=== PATIENT | female | born 1950 | race Caucasian/White ===

== ENCOUNTER 2017-12-14 15:24 | Inpatient (IN) | payer MEDICARE, BC, MEDICAID ==
[2017-12-14] MEDS: ALBUTEROL 0.5% (NEB) 2.5 MG/0.5 ML AMP INH (16:36)
[2017-12-14 17:03] LABS: ADD MAN DIFF? NO
[2017-12-14 17:05] LABS: WHITE BLOOD COUNT 14.6 10^3/ul (4.8-10.8)
[2017-12-14 17:05] LABS: BASOPHILS % 0.2 % (0.0-2.0); EOSINOPHILS # 0.1 10^3/ul (0.0-0.5); EOSINOPHILS % 0.4 % (0.0-7.0); HEMATOCRIT 30.1 % (37.0-47.0); HEMOGLOBIN 9.4 g/dl (12.0-16.0); LYMPHOCYTES # 0.8 10^3/ul (0.8-2.9); LYMPHOCYTES % 5.4 % (15.0-51.0); MEAN CORPUSCULAR HEMOGLOBIN 30.8 pg (29.0-33.0); MEAN CORPUSCULAR HGB CONC 31.2 g/dl (32.0-37.0); MEAN CORPUSCULAR VOLUME 98.7 fl (82.0-101.0); MEAN PLATELET VOLUME 10.1 fl (7.4-10.4); MONOCYTE # 0.6 10^3/ul (0.3-0.9); MONOCYTES % 3.9 % (0.0-11.0); NEUTROPHIL # 13.1 10^3/ul (1.6-7.5); NEUTROPHILS % 89.6 % (39.0-77.0); PLATELET COUNT 229 10^3/UL (140-415); RED BLOOD COUNT 3.05 10^6/ul (4.20-5.40); RED CELL DISTRIBUTION WIDTH 13.2 % (11.5-14.5)
[2017-12-14 17:27] LABS: ANION GAP 14 (8-16); BLOOD UREA NITROGEN 41 mg/dl (7-20); CALCIUM 8.4 mg/dl (8.4-10.2); CARBON DIOXIDE 36 mmol/L (21-31); CHLORIDE 99 mmol/L (97-110); CREATININE 1.82 mg/dl (0.44-1.00); GLUCOSE 120 mg/dl (70-220); POTASSIUM 3.8 mmol/L (3.5-5.1); SODIUM 145 mmol/L (135-144)
[2017-12-14 17:43] LABS: TROPONIN-I < 0.012 ng/ml (0.00-0.12)
[2017-12-14] MEDS: LEVOFLOXACIN 750MG/D5W (PMX) 150 ML IVPB (17:55)
[2017-12-14] MEDS: VANCOMYCIN 1 GM (PMX) 250 ML IVPB (20:33)
[2017-12-14] MEDS: BISACODYL 10 MG SUPP PR (23:30)
[2017-12-14] MEDS ORDERED: EPOETIN 10000 UNITS/1 ML INJ (ESRD) SC (23:30)
[2017-12-14] MEDS ORDERED: ACETAMINOPHEN 325 MG TAB PO (23:30)
[2017-12-14] MEDS ORDERED: METOCLOPRAMIDE 5 MG TAB GTB (23:30)
[2017-12-15] MEDS: LEVALBUTEROL (NEB) 0.63 MG/3 ML AMP HHN (02:22)
[2017-12-15] MEDS: ACETAMINOPHEN 325 MG TAB GTB (03:58)
[2017-12-15 05:09] LABS: ADD MAN DIFF? NO
[2017-12-15 05:14] LABS: WHITE BLOOD COUNT 8.8 10^3/ul (4.8-10.8)
[2017-12-15 05:14] LABS: BASOPHILS % 0.3 % (0.0-2.0); EOSINOPHILS # 0.1 10^3/ul (0.0-0.5); EOSINOPHILS % 1.4 % (0.0-7.0); HEMOGLOBIN 8.7 g/dl (12.0-16.0); LYMPHOCYTES # 1.2 10^3/ul (0.8-2.9); LYMPHOCYTES % 13.7 % (15.0-51.0); MEAN CORPUSCULAR HEMOGLOBIN 30.4 pg (29.0-33.0); MEAN CORPUSCULAR HGB CONC 31.1 g/dl (32.0-37.0); MEAN CORPUSCULAR VOLUME 97.9 fl (82.0-101.0); MEAN PLATELET VOLUME 10.6 fl (7.4-10.4); MONOCYTE # 0.7 10^3/ul (0.3-0.9); MONOCYTES % 8.3 % (0.0-11.0); NEUTROPHIL # 6.7 10^3/ul (1.6-7.5); PLATELET COUNT 206 10^3/UL (140-415); RED BLOOD COUNT 2.86 10^6/ul (4.20-5.40); RED CELL DISTRIBUTION WIDTH 13.6 % (11.5-14.5)
[2017-12-15 05:53] LABS: ANION GAP 15 (8-16); BLOOD UREA NITROGEN 38 mg/dl (7-20); CALCIUM 8.3 mg/dl (8.4-10.2); CARBON DIOXIDE 35 mmol/L (21-31); CHLORIDE 99 mmol/L (97-110); CREATININE 1.95 mg/dl (0.44-1.00); GLUCOSE 104 mg/dl (70-220); POTASSIUM 3.8 mmol/L (3.5-5.1); SODIUM 145 mmol/L (135-144)
[2017-12-15] MEDS: LEVOTHYROXINE 150 MCG TAB GTB (07:10)
[2017-12-15] MEDS: LANSOPRAZOLE 30 MG CAP GTB (07:10)
[2017-12-15] MEDS: LEVALBUTEROL (HFA) 15 GM INHALER INH ×3 (07:58→19:03)
[2017-12-15 08:40] LABS: AADO2 Arterial 43.6 mmHg (7.0-24.0); Arterial Base Excess 11.3 mmol/L (-3.0-3); Arterial Blood Gas Oxygen Sat 98.5 mmHG (95.0-98.0); Arterial COHb 0.3 % (0.0-3.0); Arterial Fraction of Oxyhgb 97.9 % (93.0-99.0); Arterial HCO3 36.5 mmol/L (22.0-26.0); Arterial MetHb 0.3 % (0.0-1.5); Arterial Total Hemglobin 10.6 g/dl (12.0-18.0); Arterial pCO2 51.8 mmhg (35-45); MODE VENT - AC; Site Right Radial
[2017-12-15] MEDS: GUAIFENESIN/DM 5ML CUP GTB ×4 (09:17→22:16)
[2017-12-15] MEDS: POLYETHYLENE GLYCOL 17 GM PACKET GTB (09:17)
[2017-12-15] MEDS: FERROUS SULFATE 60 MG/ML 5ML CUP GTB (09:17)
[2017-12-15] MEDS: SENNA TAB GTB ×2 (09:17→22:16)
[2017-12-15] MEDS: ENOXAPARIN 30 MG/0.3 ML SYG SC (09:18)
[2017-12-15] MEDS: FUROSEMIDE 40 MG INJ IV (09:18)
[2017-12-15] MEDS: CEFEPIME 1GM/50 ML (PMX) 50 ML IVPB ×2 (09:18→22:49)
[2017-12-15] MEDS: POTASSIUM CHLORIDE 20 MEQ POWDER FOR ORAL SOLN GTB ×2 (09:19→22:21)
[2017-12-15] MEDS: ARTIFICIAL TEARS 15 ML OPH BOTH EYES ×2 (10:58→22:20)
[2017-12-15] MEDS: LORAZEPAM 1 MG TAB GTB (13:39)
[2017-12-15] MEDS: EPOETIN ALFA (NESRD) 3,000 UNITS/ML VIAL SC (17:10)
[2017-12-15] MEDS: ATORVASTATIN 40 MG TAB GTB (22:15)
[2017-12-15] MEDS: BISACODYL 10 MG SUPP PR (23:30)
[2017-12-16] MEDS: LEVALBUTEROL (HFA) 15 GM INHALER INH ×4 (01:03→19:51)
[2017-12-16] MEDS: BISACODYL 10 MG SUPP PR ×2 (03:26→23:30)
[2017-12-16] MEDS: LEVOTHYROXINE 150 MCG TAB GTB (06:26)
[2017-12-16] MEDS: LANSOPRAZOLE 30 MG CAP GTB (06:26)
[2017-12-16] MEDS: FERROUS SULFATE 60 MG/ML 5ML CUP GTB (09:35)
[2017-12-16] MEDS: SENNA TAB GTB ×2 (09:35→21:37)
[2017-12-16] MEDS: ARTIFICIAL TEARS 15 ML OPH BOTH EYES ×2 (09:35→21:37)
[2017-12-16] MEDS: GUAIFENESIN/DM 5ML CUP GTB ×4 (09:35→21:38)
[2017-12-16] MEDS: POTASSIUM CHLORIDE 20 MEQ POWDER FOR ORAL SOLN GTB ×2 (09:35→21:38)
[2017-12-16] MEDS: FUROSEMIDE 40 MG INJ IV (09:36)
[2017-12-16] MEDS: ENOXAPARIN 30 MG/0.3 ML SYG SC (10:25)
[2017-12-16] MEDS: CEFEPIME 1GM/50 ML (PMX) 50 ML IVPB ×2 (10:31→21:38)
[2017-12-16] MEDS: POLYETHYLENE GLYCOL 17 GM PACKET GTB (10:31)
[2017-12-16] MEDS ORDERED: ONDANSETRON 4 MG INJ IV (11:30)
[2017-12-16] MEDS ORDERED: GLUCOSE GEL 15 GRAM TUBE BUCCAL (11:30)
[2017-12-16] MEDS ORDERED: DEXTROSE 50% 50 ML SYRINGE IV ×2 (11:30)
[2017-12-16] MEDS ORDERED: GLUCAGON 1 MG INJ IM (11:30)
[2017-12-16] MEDS ORDERED: GLUCOSE GEL 15 GRAM TUBE PO ×2 (11:30)
[2017-12-16] MEDS: INSULIN ASPART [NOVOLOG] 3 ML PEN SC ×3 (11:50→21:00)
[2017-12-16 18:01] LABS: ALANINE AMINOTRANSFERASE 28 IU/L (13-69); ALBUMIN 3.5 g/dl (3.3-4.9); ALBUMIN/GLOBULIN RATIO 1.02; ALKALINE PHOSPHATASE 95 IU/L (42-121); ANION GAP 13 (8-16); ASPARTATE AMINO TRANSFERASE 18 IU/L (15-46); BILIRUBIN,INDIRECT 0.2 mg/dl (0-1.1); BILIRUBIN,TOTAL 0.2 mg/dl (0.2-1.3); BLOOD UREA NITROGEN 39 mg/dl (7-20); CALCIUM 8.3 mg/dl (8.4-10.2); CARBON DIOXIDE 34 mmol/L (21-31); CHLORIDE 99 mmol/L (97-110); GLUCOSE 109 mg/dl (70-220); POTASSIUM 3.8 mmol/L (3.5-5.1); SODIUM 142 mmol/L (135-144); TOTAL PROTEIN 6.9 g/dl (6.1-8.1)
[2017-12-16] MEDS: ATORVASTATIN 40 MG TAB GTB (21:37)
[2017-12-17] MEDS: LEVALBUTEROL (HFA) 15 GM INHALER INH ×4 (01:06→19:47)
[2017-12-17 05:49] LABS: AADO2 Arterial 41.9 mmHg (7.0-24.0); Allen Test ACCEPTAB; Arterial Base Excess 6.2 mmol/L (-3.0-3); Arterial Blood Gas Oxygen Sat 98.1 mmHG (95.0-98.0); Arterial COHb 0.3 % (0.0-3.0); Arterial Fraction of Oxyhgb 97.7 % (93.0-99.0); Arterial MetHb 0.1 % (0.0-1.5); Arterial Total Hemglobin 10.3 g/dl (12.0-18.0); MODE VENT - AC; Site Left Radial
[2017-12-17] MEDS: LEVOTHYROXINE 150 MCG TAB GTB (06:27)
[2017-12-17] MEDS: LANSOPRAZOLE 30 MG CAP GTB (06:27)
[2017-12-17 07:08] LABS: ADD MAN DIFF? NO
[2017-12-17 07:11] LABS: BASOPHILS % 0.3 % (0.0-2.0); EOSINOPHILS # 0.1 10^3/ul (0.0-0.5); EOSINOPHILS % 2.2 % (0.0-7.0); HEMOGLOBIN 9.1 g/dl (12.0-16.0); LYMPHOCYTES # 1.2 10^3/ul (0.8-2.9); LYMPHOCYTES % 20.8 % (15.0-51.0); MEAN CORPUSCULAR HEMOGLOBIN 30.2 pg (29.0-33.0); MEAN CORPUSCULAR HGB CONC 31.4 g/dl (32.0-37.0); MEAN CORPUSCULAR VOLUME 96.3 fl (82.0-101.0); MONOCYTE # 0.6 10^3/ul (0.3-0.9); MONOCYTES % 9.7 % (0.0-11.0); NEUTROPHILS % 66.5 % (39.0-77.0); PLATELET COUNT 192 10^3/UL (140-415); RED BLOOD COUNT 3.01 10^6/ul (4.20-5.40); RED CELL DISTRIBUTION WIDTH 13.1 % (11.5-14.5)
[2017-12-17 07:28] LABS: HEMOGLOBIN A1C 5.6 % (0-5.9)
[2017-12-17 07:41] LABS: LACTIC ACID 0.7 mmol/L (0.5-2.0)
[2017-12-17] MEDS: INSULIN ASPART [NOVOLOG] 3 ML PEN SC ×4 (07:55→21:00)
[2017-12-17] MEDS: FERROUS SULFATE 60 MG/ML 5ML CUP GTB (08:47)
[2017-12-17] MEDS: GUAIFENESIN/DM 5ML CUP GTB ×4 (08:47→22:34)
[2017-12-17] MEDS: SENNA TAB GTB ×2 (08:47→22:40)
[2017-12-17] MEDS: POTASSIUM CHLORIDE 20 MEQ POWDER FOR ORAL SOLN GTB ×2 (08:47→22:34)
[2017-12-17] MEDS: CEFEPIME 1GM/50 ML (PMX) 50 ML IVPB ×2 (08:48→22:34)
[2017-12-17] MEDS: FUROSEMIDE 40 MG INJ IV (08:48)
[2017-12-17] MEDS: ARTIFICIAL TEARS 15 ML OPH BOTH EYES ×2 (08:48→22:35)
[2017-12-17] MEDS: POLYETHYLENE GLYCOL 17 GM PACKET GTB (08:48)
[2017-12-17 09:17] LABS: ANION GAP 13 (8-16); BLOOD UREA NITROGEN 38 mg/dl (7-20); CALCIUM 8.3 mg/dl (8.4-10.2); CARBON DIOXIDE 33 mmol/L (21-31); CHLORIDE 101 mmol/L (97-110); CREATININE 1.82 mg/dl (0.44-1.00); GLUCOSE 89 mg/dl (70-220); POTASSIUM 3.9 mmol/L (3.5-5.1); SODIUM 143 mmol/L (135-144)
[2017-12-17] MEDS: ENOXAPARIN 30 MG/0.3 ML SYG SC (09:28)
[2017-12-17] MEDS: ATORVASTATIN 40 MG TAB GTB (22:35)
[2017-12-17] MEDS: BISACODYL 10 MG SUPP PR (22:41)
[2017-12-18] MEDS: LEVALBUTEROL (HFA) 15 GM INHALER INH ×4 (01:23→19:26)
[2017-12-18 05:17] LABS: AADO2 Arterial 54.2 mmHg (7.0-24.0); Allen Test ACCEPTAB; Arterial Base Excess 3.6 mmol/L (-3.0-3); Arterial Blood Gas Oxygen Sat 97.7 mmHG (95.0-98.0); Arterial COHb 0.3 % (0.0-3.0); Arterial Fraction of Oxyhgb 97.3 % (93.0-99.0); Arterial HCO3 28.2 mmol/L (22.0-26.0); Arterial MetHb 0.1 % (0.0-1.5); Arterial pCO2 42.6 mmhg (35-45); MODE VENT - AC; Site Right Radial
[2017-12-18] MEDS: LEVOTHYROXINE 150 MCG TAB GTB (06:15)
[2017-12-18] MEDS: LANSOPRAZOLE 30 MG CAP GTB (06:15)
[2017-12-18 06:17] LABS: ADD MAN DIFF? NO
[2017-12-18 06:29] LABS: WHITE BLOOD COUNT 5.4 10^3/ul (4.8-10.8)
[2017-12-18 06:29] LABS: BASOPHILS % 0.7 % (0.0-2.0); EOSINOPHILS # 0.1 10^3/ul (0.0-0.5); HEMATOCRIT 28.5 % (37.0-47.0); LYMPHOCYTES # 1.3 10^3/ul (0.8-2.9); LYMPHOCYTES % 24.2 % (15.0-51.0); MEAN CORPUSCULAR HEMOGLOBIN 30.5 pg (29.0-33.0); MEAN CORPUSCULAR HGB CONC 31.6 g/dl (32.0-37.0); MEAN CORPUSCULAR VOLUME 96.6 fl (82.0-101.0); MEAN PLATELET VOLUME 11.1 fl (7.4-10.4); MONOCYTE # 0.6 10^3/ul (0.3-0.9); MONOCYTES % 10.3 % (0.0-11.0); NEUTROPHIL # 3.4 10^3/ul (1.6-7.5); NEUTROPHILS % 62.4 % (39.0-77.0); PLATELET COUNT 201 10^3/UL (140-415); RED BLOOD COUNT 2.95 10^6/ul (4.20-5.40); RED CELL DISTRIBUTION WIDTH 13.1 % (11.5-14.5)
[2017-12-18 06:57] LABS: ANION GAP 14 (8-16); BLOOD UREA NITROGEN 36 mg/dl (7-20); CARBON DIOXIDE 31 mmol/L (21-31); CHLORIDE 103 mmol/L (97-110); GLUCOSE 100 mg/dl (70-220); POTASSIUM 3.9 mmol/L (3.5-5.1); SODIUM 144 mmol/L (135-144)
[2017-12-18 07:46] LABS: CALCIUM 8.1 mg/dl (8.4-10.2)
[2017-12-18] MEDS: INSULIN ASPART [NOVOLOG] 3 ML PEN SC ×4 (07:55→21:00)
[2017-12-18] MEDS: ARTIFICIAL TEARS 15 ML OPH BOTH EYES ×2 (08:07→22:23)
[2017-12-18] MEDS: POTASSIUM CHLORIDE 20 MEQ POWDER FOR ORAL SOLN GTB ×2 (09:11→22:23)
[2017-12-18] MEDS: FERROUS SULFATE 60 MG/ML 5ML CUP GTB (09:11)
[2017-12-18] MEDS: POLYETHYLENE GLYCOL 17 GM PACKET GTB (09:11)
[2017-12-18] MEDS: GUAIFENESIN/DM 5ML CUP GTB ×4 (09:11→22:22)
[2017-12-18] MEDS: CEFEPIME 1GM/50 ML (PMX) 50 ML IVPB ×2 (09:12→22:24)
[2017-12-18] MEDS: SENNA TAB GTB ×2 (09:12→22:24)
[2017-12-18] MEDS: FUROSEMIDE 40 MG INJ IV (09:12)
[2017-12-18] MEDS: ENOXAPARIN 30 MG/0.3 ML SYG SC (09:14)
[2017-12-18] MEDS: EPOETIN ALFA (NESRD) 3,000 UNITS/ML VIAL SC (17:47)
[2017-12-18] MEDS: ATORVASTATIN 40 MG TAB GTB (22:24)
[2017-12-18] MEDS: FLUTICASONE 0.05% 16 GM NAS SPRAY NASAL (22:24)
[2017-12-19] MEDS: LEVALBUTEROL (HFA) 15 GM INHALER INH ×4 (02:43→19:20)
[2017-12-19] MEDS: BISACODYL 10 MG SUPP PR ×2 (03:52→23:30)
[2017-12-19] MEDS: LEVOTHYROXINE 150 MCG TAB GTB (06:18)
[2017-12-19] MEDS: LANSOPRAZOLE 30 MG CAP GTB (06:18)
[2017-12-19] MEDS: INSULIN ASPART [NOVOLOG] 3 ML PEN SC ×4 (07:55→20:34)
[2017-12-19 08:37] LABS: ADD MAN DIFF? NO
[2017-12-19 08:49] LABS: BASOPHILS % 0.3 % (0.0-2.0); EOSINOPHILS # 0.1 10^3/ul (0.0-0.5); EOSINOPHILS % 0.9 % (0.0-7.0); HEMATOCRIT 30.7 % (37.0-47.0); HEMOGLOBIN 9.6 g/dl (12.0-16.0); LYMPHOCYTES # 1.2 10^3/ul (0.8-2.9); LYMPHOCYTES % 18.1 % (15.0-51.0); MEAN CORPUSCULAR HGB CONC 31.3 g/dl (32.0-37.0); MEAN CORPUSCULAR VOLUME 95.9 fl (82.0-101.0); MEAN PLATELET VOLUME 10.7 fl (7.4-10.4); MONOCYTE # 0.5 10^3/ul (0.3-0.9); NEUTROPHIL # 4.7 10^3/ul (1.6-7.5); NEUTROPHILS % 72.4 % (39.0-77.0); PLATELET COUNT 212 10^3/UL (140-415); RED CELL DISTRIBUTION WIDTH 12.9 % (11.5-14.5)
[2017-12-19 08:49] LABS: WHITE BLOOD COUNT 6.5 10^3/ul (4.8-10.8)
[2017-12-19] MEDS: ARTIFICIAL TEARS 15 ML OPH BOTH EYES ×2 (09:02→20:28)
[2017-12-19] MEDS: SENNA TAB GTB ×2 (09:03→20:26)
[2017-12-19] MEDS: POLYETHYLENE GLYCOL 17 GM PACKET GTB (09:03)
[2017-12-19] MEDS: FERROUS SULFATE 60 MG/ML 5ML CUP GTB (09:03)
[2017-12-19] MEDS: GUAIFENESIN/DM 5ML CUP GTB ×4 (09:03→20:26)
[2017-12-19] MEDS: FLUTICASONE 0.05% 16 GM NAS SPRAY NASAL ×2 (09:03→20:28)
[2017-12-19] MEDS: POTASSIUM CHLORIDE 20 MEQ POWDER FOR ORAL SOLN GTB ×2 (09:03→20:27)
[2017-12-19] MEDS: FUROSEMIDE 40 MG INJ IV (09:04)
[2017-12-19] MEDS: CEFEPIME 1GM/50 ML (PMX) 50 ML IVPB ×2 (09:04→20:24)
[2017-12-19] MEDS: ENOXAPARIN 30 MG/0.3 ML SYG SC (09:05)
[2017-12-19 09:10] LABS: ANION GAP 12 (8-16); BLOOD UREA NITROGEN 33 mg/dl (7-20); CALCIUM 8.8 mg/dl (8.4-10.2); CARBON DIOXIDE 33 mmol/L (21-31); CHLORIDE 101 mmol/L (97-110); GLUCOSE 107 mg/dl (70-220); POTASSIUM 4.1 mmol/L (3.5-5.1); SODIUM 142 mmol/L (135-144)
[2017-12-19 09:25] LABS: FREE T3 2.01 pg/ml (2.77-5.27)
[2017-12-19] MEDS: ATORVASTATIN 40 MG TAB GTB (20:26)
[2017-12-20] MEDS: LEVALBUTEROL (HFA) 15 GM INHALER INH ×4 (01:29→19:53)
[2017-12-20] MEDS: LANSOPRAZOLE 30 MG CAP GTB (06:48)
[2017-12-20] MEDS: LEVOTHYROXINE 150 MCG TAB GTB (06:48)
[2017-12-20] MEDS: INSULIN ASPART [NOVOLOG] 3 ML PEN SC ×4 (07:55→20:27)
[2017-12-20] MEDS: ARTIFICIAL TEARS 15 ML OPH BOTH EYES ×2 (08:37→20:17)
[2017-12-20] MEDS: POLYETHYLENE GLYCOL 17 GM PACKET GTB (08:37)
[2017-12-20] MEDS: FERROUS SULFATE 60 MG/ML 5ML CUP GTB (08:37)
[2017-12-20] MEDS: GUAIFENESIN/DM 5ML CUP GTB ×4 (08:39→20:16)
[2017-12-20] MEDS: SENNA TAB GTB ×2 (08:39→20:16)
[2017-12-20] MEDS: FUROSEMIDE 40 MG INJ IV (08:40)
[2017-12-20] MEDS: CEFEPIME 1GM/50 ML (PMX) 50 ML IVPB ×2 (08:41→20:16)
[2017-12-20] MEDS: FLUTICASONE 0.05% 16 GM NAS SPRAY NASAL ×2 (08:41→20:17)
[2017-12-20] MEDS: ENOXAPARIN 30 MG/0.3 ML SYG SC (08:45)
[2017-12-20] MEDS: POTASSIUM CHLORIDE 20 MEQ POWDER FOR ORAL SOLN GTB ×2 (08:48→20:16)
[2017-12-20] MEDS: EPOETIN ALFA (NESRD) 3,000 UNITS/ML VIAL SC (17:25)
[2017-12-20] MEDS: ATORVASTATIN 40 MG TAB GTB (20:16)
== END 2017-12-20 21:45 | DRG 207 ==
LOC: TEL 18:22 → E/R 15:24
PROC: 5A1955Z Respiratory Ventilation, Greater than 96 Consecutive Hours (ICD-10-PCS; principal; 2017-12-15)
DX: J96.21 Acute and chronic respiratory failure with hypoxia (principal); I50.33 Acute on chronic diastolic (congestive) heart failure; J18.9 Pneumonia, unspecified organism; I13.0 Hypertensive heart and chronic kidney disease with heart failure and stage 1 through stage 4 chronic kidney disease, or unspecified chronic kidney disease; Z68.43 Body mass index [BMI] 50.0-59.9, adult; E66.2 Morbid (severe) obesity with alveolar hypoventilation; J96.22 Acute and chronic respiratory failure with hypercapnia; N18.9 Chronic kidney disease, unspecified; Z93.0 Tracheostomy status; D63.8 Anemia in other chronic diseases classified elsewhere; E03.9 Hypothyroidism, unspecified
CPT/HCPCS: 36600; 71045; 80048; 80053; 82803; 82962; 83036; 83605; 84443; 84481; 84484; 85025; 87040; 87400; 93005; 94002; 94003; 94640; 94664; 96372; 96374; 96375; 99285-25

== ENCOUNTER 2018-02-03 18:24 | Inpatient (IN) | payer MEDICARE, BC ==
[2018-02-03 20:14] LABS: ADD MAN DIFF? NO
[2018-02-03 20:19] LABS: WHITE BLOOD COUNT 9.2 10^3/ul (4.8-10.8)
[2018-02-03 20:19] LABS: ABNORMAL IP MESSAGE 1; BASOPHIL # 0.1 10^3/ul (0.0-0.1); BASOPHILS % 0.5 % (0.0-2.0); EOSINOPHILS # 0.1 10^3/ul (0.0-0.5); HEMATOCRIT 36.8 % (37.0-47.0); HEMOGLOBIN 10.6 g/dl (12.0-16.0); LYMPHOCYTES # 1.2 10^3/ul (0.8-2.9); LYMPHOCYTES % 13.4 % (15.0-51.0); MEAN CORPUSCULAR HGB CONC 28.8 g/dl (32.0-37.0); MEAN CORPUSCULAR VOLUME 100.5 fl (82.0-101.0); MEAN PLATELET VOLUME 10.5 fl (7.4-10.4); MONOCYTE # 0.7 10^3/ul (0.3-0.9); MONOCYTES % 7.9 % (0.0-11.0); NEUTROPHIL # 6.9 10^3/ul (1.6-7.5); NEUTROPHILS % 75.1 % (39.0-77.0); PLATELET COUNT 243 10^3/UL (140-415); RED BLOOD COUNT 3.66 10^6/ul (4.20-5.40); RED CELL DISTRIBUTION WIDTH 13.7 % (11.5-14.5)
[2018-02-03 20:25] LABS: POSITIVE DIFF @See below
[2018-02-03 20:39] LABS: ALANINE AMINOTRANSFERASE 20 IU/L (13-69); ALBUMIN/GLOBULIN RATIO 1.14; ALKALINE PHOSPHATASE 105 IU/L (42-121); ANION GAP 17 (8-16); ASPARTATE AMINO TRANSFERASE 29 IU/L (15-46); BILIRUBIN,INDIRECT 0.1 mg/dl (0-1.1); BILIRUBIN,TOTAL 0.1 mg/dl (0.2-1.3); BLOOD UREA NITROGEN 20 mg/dl (7-20); CALCIUM 8.3 mg/dl (8.4-10.2); CARBON DIOXIDE 35 mmol/L (21-31); CHLORIDE 100 mmol/L (97-110); CREATININE 1.65 mg/dl (0.44-1.00); GLUCOSE 119 mg/dl (70-220); LIPASE 58 U/L (23-300); POTASSIUM 4.4 mmol/L (3.5-5.1); SODIUM 148 mmol/L (135-144); TOTAL PROTEIN 7.5 g/dl (6.1-8.1)
[2018-02-03 20:40] LABS: LACTIC ACID 0.9 mmol/L (0.5-2.0)
[2018-02-03 20:51] LABS: TROPONIN-I 0.013 ng/ml (0.00-0.12)
[2018-02-03 20:56] LABS: T3 UPTAKE 32.3 % (23.5-40.5); T4 (THYROXINE) 6.5 ug/dl (5.5-11.0)
[2018-02-03 21:04] LABS: ACETAMINOPHEN < 10.0 ug/ml (10.0-30.0)
[2018-02-03 21:05] LABS: SALICYLATE < 1.0 mg/dl (5.0-30.0)
[2018-02-03 22:08] LABS: URINE BLOOD (Dip) POC Trace-lysed (NEGATIVE); URINE GLUCOSE (Dip) POC Negative (NEGATIVE); URINE KETONES (Dip) POC Negative (NEGATIVE); URINE LEUKOCYTE EST (Dip) POC Negative (NEGATIVE); URINE NITRITE (Dip) POC Positive (NEGATIVE); URINE TOTAL PROTEIN POC Trace (NEGATIVE)
[2018-02-03] MEDS: SOD CHLORIDE 0.9% 1,000 ML IV ×2 (22:15→23:55)
[2018-02-03] MEDS: ALBUTEROL 0.083% (NEB) 2.5 MG/3 ML AMP HHN (22:20)
[2018-02-03] MEDS: IPRATROPIUM (NEB) 0.5 MG/2.5 ML AMP HHN (22:27)
[2018-02-03 22:41] LABS: OPIATES Negative (NEGATIVE)
[2018-02-03 22:42] LABS: ADD UMIC YES; UR AMORPHOUS CRYSTAL MODERATE /HPF (NONE SEEN); UR ASCORBIC ACID NEGATIVE (NEGATIVE); UR BACTERIA FEW /HPF (NONE SEEN); UR BILIRUBIN (Dip) NEGATIVE (NEGATIVE); UR BLOOD (Dip) 1+ mg/dL (NEGATIVE); UR CLARITY SLIGHTLY CLOUDY (CLEAR); UR COLOR YELLOW (YELLOW); UR GLUCOSE (Dip) NEGATIVE (NEGATIVE); UR KETONES (Dip) NEGATIVE (NEGATIVE); UR LEUKOCYTE ESTERASE (Dip) NEGATIVE Leu/ul (NEGATIVE); UR NITRITE (Dip) POSITIVE (NEGATIVE); UR RBC 1 /HPF (0-5); UR SPECIFIC GRAVITY (Dip) 1.008 (1.003-1.030); UR TOTAL PROTEIN (Dip) NEGATIVE (NEGATIVE); UR UROBILINOGEN (Dip) NEGATIVE (NEGATIVE); UR WBC 3 /HPF (0-5)
[2018-02-03 22:46] LABS: AMPHETAMINE/METHAMPHETAMINE Negative (NEGATIVE); BARBITURATES Negative (NEGATIVE); BENZODIAZEPINES Negative (NEGATIVE); CANNABINOIDS Negative (NEGATIVE); COCAINE Negative (NEGATIVE)
[2018-02-03] MEDS ORDERED: VANCOMYCIN IV PER PHARMACY XX (23:00)
[2018-02-03] MEDS ORDERED: ONDANSETRON 4 MG INJ IV (23:00)
[2018-02-03] MEDS ORDERED: ACETAMINOPHEN 650MG/20.3ML CUP PO (23:00)
[2018-02-03] MEDS ORDERED: morphine 2 MG INJ IV (23:00)
[2018-02-03] MEDS: PIPER-TAZO 3.375 GM IV (PMX) 100 ML IVPB (23:51)
[2018-02-04] MEDS: ONDANSETRON 4 MG INJ IV (00:05)
[2018-02-04] MEDS: LORAZEPAM 2 MG INJ IV ×2 (00:05→01:41)
[2018-02-04 00:25] LABS: ADD MAN DIFF? NO
[2018-02-04 00:30] LABS: BASOPHIL # 0.1 10^3/ul (0.0-0.1); BASOPHILS % 0.6 % (0.0-2.0); EOSINOPHILS # 0.1 10^3/ul (0.0-0.5); EOSINOPHILS % 0.8 % (0.0-7.0); HEMATOCRIT 34.3 % (37.0-47.0); LYMPHOCYTES # 1.1 10^3/ul (0.8-2.9); LYMPHOCYTES % 14.4 % (15.0-51.0); MEAN CORPUSCULAR HEMOGLOBIN 29.1 pg (29.0-33.0); MEAN CORPUSCULAR HGB CONC 29.2 g/dl (32.0-37.0); MEAN CORPUSCULAR VOLUME 99.7 fl (82.0-101.0); MEAN PLATELET VOLUME 10.1 fl (7.4-10.4); MONOCYTE # 0.6 10^3/ul (0.3-0.9); MONOCYTES % 7.1 % (0.0-11.0); NEUTROPHIL # 5.8 10^3/ul (1.6-7.5); NEUTROPHILS % 73.9 % (39.0-77.0); PLATELET COUNT 222 10^3/UL (140-415); RED BLOOD COUNT 3.44 10^6/ul (4.20-5.40); RED CELL DISTRIBUTION WIDTH 13.7 % (11.5-14.5)
[2018-02-04 00:30] LABS: WHITE BLOOD COUNT 7.9 10^3/ul (4.8-10.8)
[2018-02-04] MEDS: METOCLOPRAMIDE 10 MG INJ IV (00:30)
[2018-02-04] MEDS: VANCOMYCIN 1 GM (PMX) 250 ML IVPB (00:36)
[2018-02-04 00:49] LABS: ANION GAP 16 (8-16); BLOOD UREA NITROGEN 19 mg/dl (7-20); CALCIUM 8.1 mg/dl (8.4-10.2); CARBON DIOXIDE 31 mmol/L (21-31); CHLORIDE 101 mmol/L (97-110); CREATININE 1.57 mg/dl (0.44-1.00); GLUCOSE 116 mg/dl (70-220); POTASSIUM 4.3 mmol/L (3.5-5.1); SODIUM 144 mmol/L (135-144)
[2018-02-04 02:22] LABS: Arterial Base Excess 3.7 mmol/L (-3.0-3); Arterial Blood Gas Oxygen Sat 98.3 mmHG (95.0-98.0); Arterial COHb 0.3 % (0.0-3.0); Arterial Fraction of Oxyhgb 97.9 % (93.0-99.0); Arterial HCO3 28.1 mmol/L (22.0-26.0); Arterial MetHb 0.1 % (0.0-1.5); Arterial Total Hemglobin 10.5 g/dl (12.0-18.0); Arterial pCO2 41.9 mmhg (35-45); MODE VENT - AC; Site Right Brachial
[2018-02-04] MEDS: SOD CHLORIDE 0.9% 1,000 ML IV (02:53)
[2018-02-04] MEDS ORDERED: VANCOMYCIN 500MG/NS (PMX) 100 ML IVPB (06:30)
[2018-02-04] MEDS: PIPER-TAZO 2.25 GM (PMX) 50 ML IVPB ×4 (06:41→23:55)
[2018-02-04] MEDS: VANCOMYCIN 1 GM in 250 ML IVPB (07:09)
[2018-02-04] MEDS: ENOXAPARIN 30 MG/0.3 ML SYG SC (09:19)
[2018-02-04] MEDS: FAMOTIDINE 20 MG INJ IV (09:19)
[2018-02-04] MEDS ORDERED: METOCLOPRAMIDE (1 MG/ML) 10 ML CUP GTB (11:30)
[2018-02-04] MEDS ORDERED: ACETAMINOPHEN 325 MG TAB GTB (11:30)
[2018-02-04] MEDS: GUAIFENESIN/DM 5ML CUP GTB ×3 (12:44→21:03)
[2018-02-04] MEDS: BISACODYL 10 MG SUPP PR (12:44)
[2018-02-04] MEDS: FUROSEMIDE 20 MG TAB GTB (12:45)
[2018-02-04] MEDS: LEVOTHYROXINE 150 MCG TAB GTB (12:54)
[2018-02-04] MEDS: LEVALBUTEROL (NEB) 0.63 MG/3 ML AMP INH ×2 (15:24→20:02)
[2018-02-04] MEDS: FUROSEMIDE 20 MG INJ IV (17:14)
[2018-02-04] MEDS: ATORVASTATIN 40 MG TAB GTB (21:02)
[2018-02-04] MEDS: SENNA TAB GTB (21:02)
[2018-02-04] MEDS: LORAZEPAM 1 MG TAB GTB (21:02)
[2018-02-04] MEDS: POTASSIUM CHLORIDE 20 MEQ POWDER FOR ORAL SOLN GTB (21:03)
[2018-02-04] MEDS: ARTIFICIAL TEARS 15 ML OPH BOTH EYES (21:04)
[2018-02-05] MEDS: LEVALBUTEROL (NEB) 0.63 MG/3 ML AMP INH ×3 (01:51→13:21)
[2018-02-05] MEDS: PIPER-TAZO 2.25 GM (PMX) 50 ML IVPB ×3 (05:04→17:58)
[2018-02-05] MEDS: FUROSEMIDE 20 MG INJ IV ×2 (05:05→17:58)
[2018-02-05] MEDS ORDERED: VANCOMYCIN 1.5 GM in SOD CHLORIDE 0.9% 250 ML IVPB (06:00)
[2018-02-05 06:05] LABS: ADD MAN DIFF? NO
[2018-02-05 06:21] LABS: BASOPHIL # 0.1 10^3/ul (0.0-0.1); BASOPHILS % 0.6 % (0.0-2.0); EOSINOPHILS # 0.2 10^3/ul (0.0-0.5); EOSINOPHILS % 2.1 % (0.0-7.0); HEMOGLOBIN 9.1 g/dl (12.0-16.0); LYMPHOCYTES # 1.7 10^3/ul (0.8-2.9); LYMPHOCYTES % 19.9 % (15.0-51.0); MEAN CORPUSCULAR HEMOGLOBIN 29.2 pg (29.0-33.0); MEAN CORPUSCULAR HGB CONC 30.3 g/dl (32.0-37.0); MEAN CORPUSCULAR VOLUME 96.2 fl (82.0-101.0); MEAN PLATELET VOLUME 10.9 fl (7.4-10.4); MONOCYTE # 0.6 10^3/ul (0.3-0.9); MONOCYTES % 7.7 % (0.0-11.0); NEUTROPHIL # 5.7 10^3/ul (1.6-7.5); NEUTROPHILS % 68.5 % (39.0-77.0); PLATELET COUNT 231 10^3/UL (140-415); RED BLOOD COUNT 3.12 10^6/ul (4.20-5.40); RED CELL DISTRIBUTION WIDTH 13.7 % (11.5-14.5)
[2018-02-05 06:21] LABS: WHITE BLOOD COUNT 8.3 10^3/ul (4.8-10.8)
[2018-02-05] MEDS: LEVOTHYROXINE 150 MCG TAB GTB (06:29)
[2018-02-05 06:32] LABS: ANION GAP 12 (8-16); BLOOD UREA NITROGEN 23 mg/dl (7-20); CALCIUM 7.9 mg/dl (8.4-10.2); CARBON DIOXIDE 34 mmol/L (21-31); CHLORIDE 107 mmol/L (97-110); CREATININE 1.79 mg/dl (0.44-1.00); GLUCOSE 112 mg/dl (70-220); SODIUM 149 mmol/L (135-144)
[2018-02-05 06:45] LABS: LACTIC ACID 0.9 mmol/L (0.5-2.0)
[2018-02-05] MEDS: POTASSIUM CHLORIDE 20 MEQ POWDER FOR ORAL SOLN GTB ×2 (08:46→20:50)
[2018-02-05] MEDS: FAMOTIDINE 20 MG INJ IV (08:46)
[2018-02-05] MEDS: GUAIFENESIN/DM 5ML CUP GTB ×4 (08:46→20:49)
[2018-02-05] MEDS: FERROUS SULFATE 60 MG/ML 5ML CUP GTB (08:47)
[2018-02-05] MEDS: POLYETHYLENE GLYCOL 17 GM PACKET GTB (08:47)
[2018-02-05] MEDS: SENNA TAB GTB ×2 (08:49→20:49)
[2018-02-05] MEDS: ENOXAPARIN 30 MG/0.3 ML SYG SC (08:50)
[2018-02-05] MEDS: ARTIFICIAL TEARS 15 ML OPH BOTH EYES ×2 (08:51→20:49)
[2018-02-05] MEDS: BISACODYL 10 MG SUPP PR (11:30)
[2018-02-05] MEDS ORDERED: LEVALBUTEROL (HFA) 15 GM INHALER INH (13:30)
[2018-02-05] MEDS: LEVALBUTEROL (HFA) 15 GM INHALER INH (19:29)
[2018-02-05] MEDS: ATORVASTATIN 40 MG TAB GTB (20:49)
[2018-02-06] MEDS: PIPER-TAZO 2.25 GM (PMX) 50 ML IVPB ×3 (00:08→12:21)
[2018-02-06] MEDS: LEVALBUTEROL (HFA) 15 GM INHALER INH ×4 (01:48→19:46)
[2018-02-06] MEDS: LEVOTHYROXINE 150 MCG TAB GTB (06:11)
[2018-02-06] MEDS: FUROSEMIDE 20 MG INJ IV ×2 (06:11→17:34)
[2018-02-06 07:45] LABS: ADD MAN DIFF? NO
[2018-02-06 08:18] LABS: ANION GAP 15 (8-16); BLOOD UREA NITROGEN 20 mg/dl (7-20); CALCIUM 8.1 mg/dl (8.4-10.2); CARBON DIOXIDE 36 mmol/L (21-31); CHLORIDE 102 mmol/L (97-110); CREATININE 1.86 mg/dl (0.44-1.00); GLUCOSE 118 mg/dl (70-220); MAGNESIUM 1.7 mg/dl (1.7-2.5); PHOSPHORUS 3.4 mg/dl (2.5-4.9); POTASSIUM 3.7 mmol/L (3.5-5.1); SODIUM 149 mmol/L (135-144)
[2018-02-06 08:21] LABS: WHITE BLOOD COUNT 7.2 10^3/ul (4.8-10.8)
[2018-02-06 08:21] LABS: BASOPHIL # 0.1 10^3/ul (0.0-0.1); BASOPHILS % 0.7 % (0.0-2.0); EOSINOPHILS # 0.2 10^3/ul (0.0-0.5); EOSINOPHILS % 3.3 % (0.0-7.0); HEMOGLOBIN 9.2 g/dl (12.0-16.0); LYMPHOCYTES # 1.4 10^3/ul (0.8-2.9); LYMPHOCYTES % 19.5 % (15.0-51.0); MEAN CORPUSCULAR HEMOGLOBIN 29.3 pg (29.0-33.0); MEAN CORPUSCULAR HGB CONC 30.7 g/dl (32.0-37.0); MEAN CORPUSCULAR VOLUME 95.5 fl (82.0-101.0); MEAN PLATELET VOLUME 10.7 fl (7.4-10.4); MONOCYTE # 0.7 10^3/ul (0.3-0.9); MONOCYTES % 10.3 % (0.0-11.0); NEUTROPHIL # 4.7 10^3/ul (1.6-7.5); NEUTROPHILS % 64.8 % (39.0-77.0); PLATELET COUNT 242 10^3/UL (140-415); RED BLOOD COUNT 3.14 10^6/ul (4.20-5.40); RED CELL DISTRIBUTION WIDTH 13.5 % (11.5-14.5)
[2018-02-06 08:37] LABS: Arterial Base Excess 3.1 mmol/L (-3.0-3); Arterial Blood Gas Oxygen Sat 94.7 mmHG (95.0-98.0); Arterial COHb 0.3 % (0.0-3.0); Arterial HCO3 33.1 mmol/L (22.0-26.0); Arterial MetHb 0.4 % (0.0-1.5); Arterial Total Hemglobin 11.1 g/dl (12.0-18.0); Arterial pCO2 86.2 mmhg (35-45); MODE COOL AEROSOL TRACH; Site Right Brachial
[2018-02-06] MEDS: FERROUS SULFATE 60 MG/ML 5ML CUP GTB (09:20)
[2018-02-06] MEDS: POTASSIUM CHLORIDE 20 MEQ POWDER FOR ORAL SOLN GTB ×2 (09:20→22:19)
[2018-02-06] MEDS: GUAIFENESIN/DM 5ML CUP GTB ×4 (09:20→22:26)
[2018-02-06] MEDS: POLYETHYLENE GLYCOL 17 GM PACKET GTB (09:20)
[2018-02-06] MEDS: FAMOTIDINE 20 MG INJ IV (09:21)
[2018-02-06] MEDS: SENNA TAB GTB ×2 (09:21→22:19)
[2018-02-06] MEDS: ENOXAPARIN 30 MG/0.3 ML SYG SC (09:44)
[2018-02-06] MEDS: ARTIFICIAL TEARS 15 ML OPH BOTH EYES ×2 (09:44→22:18)
[2018-02-06] MEDS: BISACODYL 10 MG SUPP PR (11:30)
[2018-02-06] MEDS ORDERED: AMIKACIN IV PER PHARMACY XX (13:00)
[2018-02-06] MEDS: AMIKACIN 450 MG in SOD CHLORIDE 0.9% 100 ML IVPB (17:33)
[2018-02-06] MEDS: ATORVASTATIN 40 MG TAB GTB (22:18)
[2018-02-07] MEDS: LEVALBUTEROL (HFA) 15 GM INHALER INH ×5 (03:05→19:18)
[2018-02-07] MEDS: FUROSEMIDE 20 MG INJ IV ×2 (06:21→18:22)
[2018-02-07] MEDS: LEVOTHYROXINE 150 MCG TAB GTB (06:21)
[2018-02-07 06:25] LABS: ADD MAN DIFF? NO
[2018-02-07 06:34] LABS: WHITE BLOOD COUNT 7.4 10^3/ul (4.8-10.8)
[2018-02-07 06:34] LABS: BASOPHILS % 0.4 % (0.0-2.0); EOSINOPHILS # 0.2 10^3/ul (0.0-0.5); EOSINOPHILS % 2.4 % (0.0-7.0); HEMATOCRIT 32.4 % (37.0-47.0); HEMOGLOBIN 9.8 g/dl (12.0-16.0); LYMPHOCYTES # 1.6 10^3/ul (0.8-2.9); LYMPHOCYTES % 21.5 % (15.0-51.0); MEAN CORPUSCULAR HEMOGLOBIN 29.1 pg (29.0-33.0); MEAN CORPUSCULAR HGB CONC 30.2 g/dl (32.0-37.0); MEAN CORPUSCULAR VOLUME 96.1 fl (82.0-101.0); MEAN PLATELET VOLUME 10.5 fl (7.4-10.4); MONOCYTE # 0.5 10^3/ul (0.3-0.9); MONOCYTES % 6.8 % (0.0-11.0); NEUTROPHIL # 4.9 10^3/ul (1.6-7.5); NEUTROPHILS % 67.1 % (39.0-77.0); PLATELET COUNT 278 10^3/UL (140-415); RED BLOOD COUNT 3.37 10^6/ul (4.20-5.40); RED CELL DISTRIBUTION WIDTH 13.2 % (11.5-14.5)
[2018-02-07 06:52] LABS: ANION GAP 15 (8-16); BLOOD UREA NITROGEN 23 mg/dl (7-20); CALCIUM 8.2 mg/dl (8.4-10.2); CARBON DIOXIDE 37 mmol/L (21-31); CHLORIDE 100 mmol/L (97-110); CREATININE 1.92 mg/dl (0.44-1.00); GLUCOSE 142 mg/dl (70-220); POTASSIUM 3.7 mmol/L (3.5-5.1); SODIUM 148 mmol/L (135-144)
[2018-02-07] MEDS: FAMOTIDINE 20 MG INJ IV (08:45)
[2018-02-07] MEDS: POTASSIUM CHLORIDE 20 MEQ POWDER FOR ORAL SOLN GTB ×2 (08:45→21:29)
[2018-02-07] MEDS: SENNA TAB GTB ×2 (08:46→21:00)
[2018-02-07] MEDS: FERROUS SULFATE 60 MG/ML 5ML CUP GTB (08:46)
[2018-02-07] MEDS: POLYETHYLENE GLYCOL 17 GM PACKET GTB (08:46)
[2018-02-07] MEDS: GUAIFENESIN/DM 5ML CUP GTB ×4 (08:46→21:31)
[2018-02-07] MEDS: ARTIFICIAL TEARS 15 ML OPH BOTH EYES ×2 (08:46→21:28)
[2018-02-07] MEDS: ENOXAPARIN 30 MG/0.3 ML SYG SC (08:47)
[2018-02-07] MEDS: BISACODYL 10 MG SUPP PR (11:30)
[2018-02-07] MEDS: AMIKACIN 450 MG in SOD CHLORIDE 0.9% 100 ML IVPB (18:22)
[2018-02-07] MEDS: ATORVASTATIN 40 MG TAB GTB (21:28)
[2018-02-08] MEDS: LEVALBUTEROL (HFA) 15 GM INHALER INH ×4 (00:14→19:52)
[2018-02-08] MEDS: FUROSEMIDE 20 MG INJ IV (05:33)
[2018-02-08] MEDS: LEVOTHYROXINE 150 MCG TAB GTB (06:37)
[2018-02-08 09:13] LABS: ADD MAN DIFF? NO
[2018-02-08 09:17] LABS: BASOPHILS % 0.3 % (0.0-2.0); EOSINOPHILS # 0.1 10^3/ul (0.0-0.5); EOSINOPHILS % 1.2 % (0.0-7.0); HEMATOCRIT 31.3 % (37.0-47.0); HEMOGLOBIN 9.7 g/dl (12.0-16.0); LYMPHOCYTES # 1.3 10^3/ul (0.8-2.9); LYMPHOCYTES % 14.3 % (15.0-51.0); MEAN CORPUSCULAR HEMOGLOBIN 29.8 pg (29.0-33.0); MEAN PLATELET VOLUME 10.9 fl (7.4-10.4); MONOCYTE # 0.6 10^3/ul (0.3-0.9); MONOCYTES % 6.5 % (0.0-11.0); NEUTROPHIL # 7.1 10^3/ul (1.6-7.5); NEUTROPHILS % 76.2 % (39.0-77.0); PLATELET COUNT 309 10^3/UL (140-415); RED BLOOD COUNT 3.26 10^6/ul (4.20-5.40); RED CELL DISTRIBUTION WIDTH 13.4 % (11.5-14.5)
[2018-02-08 09:17] LABS: WHITE BLOOD COUNT 9.3 10^3/ul (4.8-10.8)
[2018-02-08] MEDS: POLYETHYLENE GLYCOL 17 GM PACKET GTB (09:29)
[2018-02-08] MEDS: GUAIFENESIN/DM 5ML CUP GTB ×4 (09:29→20:31)
[2018-02-08] MEDS: FERROUS SULFATE 60 MG/ML 5ML CUP GTB (09:29)
[2018-02-08] MEDS: SENNA TAB GTB ×2 (09:30→20:39)
[2018-02-08] MEDS: FAMOTIDINE 20 MG INJ IV (09:30)
[2018-02-08] MEDS: ARTIFICIAL TEARS 15 ML OPH BOTH EYES ×2 (09:30→20:32)
[2018-02-08] MEDS: POTASSIUM CHLORIDE 20 MEQ POWDER FOR ORAL SOLN GTB ×2 (09:30→20:32)
[2018-02-08 09:41] LABS: ANION GAP 16 (8-16); BLOOD UREA NITROGEN 26 mg/dl (7-20); CALCIUM 8.3 mg/dl (8.4-10.2); CARBON DIOXIDE 36 mmol/L (21-31); CHLORIDE 100 mmol/L (97-110); GLUCOSE 151 mg/dl (70-220); POTASSIUM 3.7 mmol/L (3.5-5.1); SODIUM 148 mmol/L (135-144)
[2018-02-08] MEDS: ENOXAPARIN 30 MG/0.3 ML SYG SC (09:57)
[2018-02-08] MEDS: BISACODYL 10 MG SUPP PR (11:30)
[2018-02-08] MEDS: AMIKACIN 450 MG in SOD CHLORIDE 0.9% 100 ML IVPB (17:25)
[2018-02-08] MEDS: ATORVASTATIN 40 MG TAB GTB (20:31)
[2018-02-09] MEDS: LEVALBUTEROL (HFA) 15 GM INHALER INH ×3 (02:21→14:11)
[2018-02-09] MEDS: LEVOTHYROXINE 150 MCG TAB GTB (06:07)
[2018-02-09 08:28] LABS: ADD MAN DIFF? NO
[2018-02-09 08:37] LABS: WHITE BLOOD COUNT 11.1 10^3/ul (4.8-10.8)
[2018-02-09 08:37] LABS: BASOPHILS % 0.4 % (0.0-2.0); EOSINOPHILS # 0.1 10^3/ul (0.0-0.5); EOSINOPHILS % 0.6 % (0.0-7.0); HEMATOCRIT 31.4 % (37.0-47.0); HEMOGLOBIN 9.6 g/dl (12.0-16.0); LYMPHOCYTES # 1.4 10^3/ul (0.8-2.9); LYMPHOCYTES % 12.9 % (15.0-51.0); MEAN CORPUSCULAR HEMOGLOBIN 29.4 pg (29.0-33.0); MEAN CORPUSCULAR HGB CONC 30.6 g/dl (32.0-37.0); MEAN CORPUSCULAR VOLUME 96.3 fl (82.0-101.0); MEAN PLATELET VOLUME 10.6 fl (7.4-10.4); MONOCYTE # 0.8 10^3/ul (0.3-0.9); MONOCYTES % 6.8 % (0.0-11.0); NEUTROPHIL # 8.6 10^3/ul (1.6-7.5); NEUTROPHILS % 77.9 % (39.0-77.0); PLATELET COUNT 304 10^3/UL (140-415); RED BLOOD COUNT 3.26 10^6/ul (4.20-5.40); RED CELL DISTRIBUTION WIDTH 13.4 % (11.5-14.5)
[2018-02-09 09:19] LABS: B-TYPE NATRIURETIC PEPTIDE 349 PG/ML (0-125)
[2018-02-09] MEDS: FERROUS SULFATE 60 MG/ML 5ML CUP GTB (09:41)
[2018-02-09] MEDS: FUROSEMIDE 20 MG INJ IV (09:41)
[2018-02-09] MEDS: GUAIFENESIN/DM 5ML CUP GTB ×3 (09:41→17:00)
[2018-02-09] MEDS: SENNA TAB GTB (09:41)
[2018-02-09] MEDS: ARTIFICIAL TEARS 15 ML OPH BOTH EYES (09:42)
[2018-02-09] MEDS: POTASSIUM CHLORIDE 20 MEQ POWDER FOR ORAL SOLN GTB (09:42)
[2018-02-09] MEDS: POLYETHYLENE GLYCOL 17 GM PACKET GTB (09:42)
[2018-02-09] MEDS: ENOXAPARIN 30 MG/0.3 ML SYG SC (09:44)
[2018-02-09] MEDS: FAMOTIDINE 20 MG INJ IV (09:55)
[2018-02-09 10:31] LABS: ANION GAP 16 (8-16); BLOOD UREA NITROGEN 31 mg/dl (7-20); CALCIUM 8.3 mg/dl (8.4-10.2); CARBON DIOXIDE 34 mmol/L (21-31); CHLORIDE 102 mmol/L (97-110); CREATININE 1.84 mg/dl (0.44-1.00); GLUCOSE 126 mg/dl (70-220); POTASSIUM 4.4 mmol/L (3.5-5.1); SODIUM 148 mmol/L (135-144)
[2018-02-09] MEDS: BISACODYL 10 MG SUPP PR (13:11)
[2018-02-09] MEDS: AMIKACIN 450 MG in SOD CHLORIDE 0.9% 100 ML IVPB (18:36)
== END 2018-02-09 19:39 | disposition other institution (70) | DRG 189 ==
LOC: ICU 23:41 → TEL 02-06 01:10 → ICU 02-05 17:41 → E/R 18:24
DX: J96.22 Acute and chronic respiratory failure with hypercapnia (principal); J69.0 Pneumonitis due to inhalation of food and vomit; G93.41 Metabolic encephalopathy; I50.31 Acute diastolic (congestive) heart failure; Z93.0 Tracheostomy status; E87.0 Hyperosmolality and hypernatremia; N39.0 Urinary tract infection, site not specified; I13.0 Hypertensive heart and chronic kidney disease with heart failure and stage 1 through stage 4 chronic kidney disease, or unspecified chronic kidney disease; Z68.43 Body mass index [BMI] 50.0-59.9, adult; J44.0 Chronic obstructive pulmonary disease with (acute) lower respiratory infection; E66.01 Morbid (severe) obesity due to excess calories; N18.9 Chronic kidney disease, unspecified; J40 Bronchitis, not specified as acute or chronic; Z87.01 Personal history of pneumonia (recurrent); E03.9 Hypothyroidism, unspecified; Z93.1 Gastrostomy status; R13.10 Dysphagia, unspecified; B96.20 Unspecified Escherichia coli [E. coli] as the cause of diseases classified elsewhere; B96.1 Klebsiella pneumoniae [K. pneumoniae] as the cause of diseases classified elsewhere
CPT/HCPCS: 36415; 36600; 70450; 70490; 71045; 80048; 80053; 80150; 80306; 80307; 81001; 81003; 82803; 82962; 83605; 83690; 83735; 83880; 84100; 84436; 84443; 84479; 84484; 85025; 87081; 87086; 87400; 93005; 94002; 94003; 94640; 94644; 94664; 94799; 96374; 96375; 96376; 99291-25; J1940